=== PATIENT | female | born 1995 | race Caucasian/White ===

== ENCOUNTER 2017-04-01 10:21 | Emergency (ER) | payer MEDICAID ==
[2017-04-01] MEDS ORDERED: ACETAMINOPHEN 325 MG TAB PO ONE (10:51)
--- NOTE | 2017-04-01 10:54 | Emergency Department Record ---
History of Present Illness - General Chief Complaint: Ankle/Foot Injury Stated Complaint: R ANKLE INJURY Time Seen by Provider: 04/01/17 10:48 Source: Patient Mode of Arrival: Wheelchair - History of Present Illness Initial Comments: the patient states that she rolled her ankle last evening while walking in the yard in the dark. She fell to the grass, felt some popping at the time. She enies other injury or prior injury to that ankle. Onset/Timin -: Days(s) Type of Injury: Inversion Place: Home Severity: Moderate Severity scale (1-10): 7 Improves With: Immobilization Worsens With: Weight bearing Context: Walking - Related Data Home Medications Medication Instructions Recorded Confirmed Last Taken No Home Med [NO HOME MEDS] 04/01/17 04/01/17 Unknown Allergies Allergy/AdvReac Type Severity Reaction Status Date / Time No Known Drug Allergies Allergy Verified 04/01/17 10:30 Travel Screening - Travel/Exposure Within Last 30 Days Have you traveled within the last 30 days?: No Review of Systems Reviewed: No additional complaints except as noted below Constitutional: Reports: As per HPI. Denies: Chills, Fever, Malaise, Night sweats, Weakness, Weight change Eyes: Reports: As per HPI. Denies: Eye discharge, Eye pain, Photophobia, Vision change ENT: Reports: As per HPI. Denies: Congestion, Dental pain, Ear pain, Epistaxis , Hearing loss, Throat pain Respiratory: Reports: As per HPI. Denies: Cough, Dyspnea, Hemoptysis, Stridor, Wheezes Cardiovascular: Reports: As per HPI. Denies: Arrhythmia, Chest pain, Dyspnea on exertion, Edema, Murmurs, Orthopnea, Palpitations, Paroxysmal nocturnal dyspnea, Rheumatic Fever, Syncope Endocrine: Reports: As per HPI. Denies: Fatigue, Heat or cold intolerance, Polydipsia, Polyuria Gastrointestinal: Reports: As per HPI. Denies: Abdominal pain, Constipation, Diarrhea, Hematemesis, Hematochezia, Melena, Nausea, Vomiting Genitourinary: Reports: As per HPI. Denies: Abnormal menses, Discharge, Dyspareunia, Dysuria, Frequency, Hematuria, Incontinence, Retention, Urgency Musculoskeletal: Reports: As per HPI. Denies: Arthralgia, Back pain, Gout, Joint swelling, Myalgia, Neck pain Skin: Reports: As per HPI. Denies: Bruising, Change in color, Change in hair/ nails, Lesions, Pruritus, Rash Neurological: Reports: As per HPI. Denies: Abnormal gait, Confusion, Headache, Numbness, Paresthesias, Seizure, Tingling, Tremors, Vertigo, Weakness Psychiatric: Reports: As per HPI. Denies: Anxiety, Auditory hallucinations, Depression, Homicidal thoughts, Suicidal thoughts, Visual hallucinations Hematological/Lymphatic: Reports: As per HPI. Denies: Anemia, Blood Clots, Easy bleeding, Easy bruising, Swollen glands Past Medical History - SOCIAL HISTORY Smoking Status: Never smoker Alcohol Use: None Drug Use: None - RESPIRATORY Hx Respiratory Disorders: No - CARDIOVASCULAR Hx Cardio Disorders: No - NEURO Hx Neuro Disorders: No - GI Hx GI Disorders: No - Hx Genitourinary Disorders: No - ENDOCRINE Hx Endocrine Disorders: No Hx Diabetes: No Hx Thyroid Disease: No - MUSCULOSKELETAL Hx Musculoskeletal Disorders: No - PSYCH Hx Psych Problems: No - HEMATOLOGY/ONCOLOGY Hx Hematology/Oncology Disorders: No Family Medical History Any Significant Family History?: Yes Hx Cancer: Mother Hx Diabetes: Grandparents Physical Exam - General General Appearance: Alert, Oriented x3, Cooperative, Mild distress - Head Head exam: Normal inspection - Eye Eye exam: Normal appearance, PERRL Pupils: Normal accommodation - ENT ENT exam: Normal exam, Mucous membranes moist, Normal external ear exam, Normal orophraynx Ear exam: Normal external inspection. negative: External canal tenderness Nasal Exam: Normal inspection. negative: Discharge, Sinus tenderness Mouth exam: Normal external inspection, Tongue normal Teeth exam: Normal inspection. negative: Dental caries Throat exam: Normal inspection. negative: Tonsillar erythema, Tonsillar exudate - Neck Neck exam: Normal inspection, Full ROM. negative: Tenderness - Respiratory Respiratory exam: negative: Respiratory distress - Cardiovascular Cardiovascular Exam: Regular rate, Normal rhythm - GI/Abdominal GI/Abdominal exam: Soft. negative: Tenderness - Rectal Rectal exam: Deferred - exam: Deferred - Extremities Extremities exam: Full ROM, Normal capillary refill, Tenderness (Right ankle tender mostly over lateral malleolus with moderate swelling there. No foot bony tenderness. No proximal fibula tenderness. [employer]PER intact distally.) - Back Back exam: Reports: Normal inspection, Full ROM. Denies: Muscle spasm, Rash noted, Tenderness - Neurological Neurological exam: Alert, Normal gait, Oriented X3, Reflexes normal - Psychiatric Psychiatric exam: Normal affect, Normal mood - Skin Skin exam: Dry, Intact, Normal color, Warm Course Vital Signs 04/01/17 10:27 Temperature 98.0 F Pulse Rate 83 Respiratory 20 Rate Blood Pressure 120/68 Pulse Ox 100 Medical Decision Making - Data Complexity MDM Data: X-Ray Ordered and/or Reviewed (Right ankle xray: Negative for acute fx ; STS. Per ED physician& radiologist.) Disposition Disposition: Discharge Clinical Impression: Right ankle sprain Qualifiers: Encounter type: initial encounter Involved ligament of ankle: unspecified ligament Qualified Code(s): S93.401A - Sprain of unspecified ligament of right ankle, initial encounter Disposition: Home, Self-Care Condition: (1) Good Instructions: Ankle Sprain Exercises (GEN), Ankle Sprain (ED) Additional Instructions: Airsplint right ankle. Ice, elevate first 48 hours. Tylenol or ibuprofen as directed as needed for pain. Crutches with NO weight bearing. Follow up with PCP next week for recheck.
--- NOTE | 2017-04-04 12:10 | RADIOLOGY REPORT ---
EXAM: RIGHT ANKLE, FOUR VIEWS HISTORY: RIGHT ANKLE INJURY, LATERAL PAIN. TECHNIQUE: Four views of the right ankle were obtained. Comparison: None. Encounter: Initial. FINDINGS: Lateral soft tissue swelling of the right ankle. The ankle mortise is intact. No fracture. IMPRESSION: NO ACUTE OSSEOUS ABNORMALITY OF THE RIGHT ANKLE. JOB NUMBER: [id number] MTDD
== END 2017-04-01 12:01 | disposition home or self-care (01) ==
LOC: ER 10:21
DX: S93.401A Sprain of unspecified ligament of right ankle, initial encounter (principal); W18.42XA Slipping, tripping and stumbling without falling due to stepping into hole or opening, initial encounter; Y93.01 Activity, walking, marching and hiking; Y92.017 Garden or yard in single-family (private) house as the place of occurrence of the external cause
CPT/HCPCS: 99283

== ENCOUNTER 2017-05-21 10:54 | Emergency (ER) | payer MEDICAID ==
--- NOTE | 2017-05-21 11:27 | Emergency Department Record ---
History of Present Illness - General Chief complaint: Female Urogenital Problem Stated complaint: VAGINAL DISCHARGE Time Seen by Provider: 05/21/17 11:02 Source: Patient, RN notes reviewed Mode of Arrival: Ambulatory - History of Present Illness Initial comments: seen at [facility] 4 days ago and was diagnoses with bacterial vaginosis and placed on clindamycin and she has four pills left and the bacterial discharge is worse and she is 8 weeks preg. No abdominal pain and she has a 2 year old child. Patient thinks she is 8 weeks preg MD Complaint: Vaginal discharge Onset/Timin -: Days(s) Severity: Moderate Severity scale (1-10): 5 Quality: Other Consistency: Constant Improves with: None Worsens with: None Patient : Yes (8 weeks) Associated Symptoms: Vaginal discharge - Related Data Home Medications Medication Instructions Recorded Confirmed Last Taken Pnv,Calcium 72/Iron/Folic Acid 1 tab PO DAILY 30 Days 05/16/17 05/21/17 05/21/17 [Pnv Plus Multivit Tab] Previous Rx's Medication Instructions Recorded Miconazole Nitrate [Monistat 7] 1 apply VG DAILY #7 applic 05/21/17 Allergies Allergy/AdvReac Type Severity Reaction Status Date / Time No Known Drug Allergies Allergy Verified 05/21/17 11:08 Travel Screening - Travel/Exposure Within Last 30 Days Have you traveled within the last 30 days?: No - Travel/Exposure Within Last Year Have you traveled outside the [place] in the last year?: No - Additonal Travel Details Have you been exposed to anyone with a communicable illness?: No - Travel Symptoms Symptom Screening: None Review of Systems Reviewed: No additional complaints except as noted below Constitutional: Reports: As per HPI. Denies: Chills, Fever, Malaise, Night sweats, Weakness, Weight change Eyes: Reports: As per HPI. Denies: Eye discharge, Eye pain, Photophobia, Vision change ENT: Reports: As per HPI. Denies: Congestion, Dental pain, Ear pain, Epistaxis , Hearing loss, Throat pain Respiratory: Reports: As per HPI. Denies: Cough, Dyspnea, Hemoptysis, Stridor, Wheezes Cardiovascular: Reports: As per HPI. Denies: Arrhythmia, Chest pain, Dyspnea on exertion, Edema, Murmurs, Orthopnea, Palpitations, Paroxysmal nocturnal dyspnea, Rheumatic Fever, Syncope Endocrine: Reports: As per HPI. Denies: Fatigue, Heat or cold intolerance, Polydipsia, Polyuria Gastrointestinal: Reports: As per HPI. Denies: Abdominal pain, Constipation, Diarrhea, Hematemesis, Hematochezia, Melena, Nausea, Vomiting Genitourinary: Reports: As per HPI. Denies: Abnormal menses, Discharge, Dyspareunia, Dysuria, Frequency, Hematuria, Incontinence, Retention, Urgency Musculoskeletal: Reports: As per HPI. Denies: Arthralgia, Back pain, Gout, Joint swelling, Myalgia, Neck pain Skin: Reports: As per HPI. Denies: Bruising, Change in color, Change in hair/ nails, Lesions, Pruritus, Rash Neurological: Reports: As per HPI. Denies: Abnormal gait, Confusion, Headache, Numbness, Paresthesias, Seizure, Tingling, Tremors, Vertigo, Weakness Psychiatric: Reports: As per HPI. Denies: Anxiety, Auditory hallucinations, Depression, Homicidal thoughts, Suicidal thoughts, Visual hallucinations Hematological/Lymphatic: Reports: As per HPI. Denies: Anemia, Blood Clots, Easy bleeding, Easy bruising, Swollen glands Past Medical History - SOCIAL HISTORY Smoking Status: Never smoker Alcohol Use: None Drug Use: None - RESPIRATORY Hx Respiratory Disorders: No - CARDIOVASCULAR Hx Cardio Disorders: No - NEURO Hx Neuro Disorders: No - GI Hx GI Disorders: No - Hx Genitourinary Disorders: No - ENDOCRINE Hx Endocrine Disorders: No Hx Diabetes: No Hx Thyroid Disease: No - MUSCULOSKELETAL Hx Musculoskeletal Disorders: No - PSYCH Hx Psych Problems: No - HEMATOLOGY/ONCOLOGY Hx Hematology/Oncology Disorders: No Family Medical History Any Significant Family History?: Yes Hx Cancer: Mother Hx Diabetes: Grandparents Physical Exam - General General Appearance: Alert, Oriented x3, Cooperative, No acute distress - Head Head exam: Normal inspection - Eye Eye exam: Normal appearance, PERRL Pupils: Normal accommodation - ENT ENT exam: Normal exam, Mucous membranes moist, Normal external ear exam, Normal orophraynx, TM's normal bilaterally Ear exam: Normal external inspection. negative: External canal tenderness Nasal Exam: Normal inspection. negative: Discharge, Sinus tenderness Mouth exam: Normal external inspection, Tongue normal Teeth exam: Normal inspection. negative: Dental caries Throat exam: Normal inspection. negative: Tonsillar erythema, Tonsillar exudate - Neck Neck exam: Normal inspection, Full ROM. negative: Tenderness - Respiratory Respiratory exam: Normal lung sounds bilaterally. negative: Respiratory distress - Cardiovascular Cardiovascular Exam: Regular rate, Normal rhythm, Normal heart sounds - GI/Abdominal GI/Abdominal exam: Soft, Normal bowel sounds. negative: Tenderness - Rectal Rectal exam: Deferred - exam: Vaginal discharge (discharge is cottage cheese like discharge) - Extremities Extremities exam: Normal inspection, Full ROM, Normal capillary refill. negative: Tenderness - Back Back exam: Reports: Normal inspection, Full ROM. Denies: Muscle spasm, Rash noted, Tenderness - Neurological Neurological exam: Alert, Normal gait, Oriented X3, Reflexes normal - Psychiatric Psychiatric exam: Normal affect, Normal mood - Skin Skin exam: Dry, Intact, Normal color, Warm Course Vital Signs 05/21/17 05/21/17 11:04 11:10 Temperature 98.9 F 98.9 F Pulse Rate [ 84 Pulse Ox Probe] Respiratory 16 16 Rate Blood Pressure 114/70 [Left Arm] Pulse Ox 97 97 Disposition Clinical Impression: Monial infection of vagina Qualifiers: Weeks of gestation: 8 weeks Qualified Code(s): Z3A.08 - 8 weeks gestation of Disposition: Home, Self-Care Condition: (1) Good Instructions: Vulvovaginal Candidiasis (ED) Additional Instructions: follow up with family dr Costello 3 days Prescriptions: Miconazole Nitrate [Monistat 7] 1 apply VG DAILY #7 applic Forms: Patient Portal Access Time of Disposition: 12:00 Quality - Quality Measures Quality Measures: N/A - Blood Pressure Screening Blood Pressure Classification: Normal BP Reading Systolic Measurement: 114 Diastolic Measurement: 70 Screening for High Blood Pressure: < Normal BP, F/U Not Required > [G8783] Normal BP Follow-up Interventions: No follow-up required
[2017-05-21 11:29] LABS: URINE APPEARANCE CLEAR; URINE BILIRUBIN NEGATIVE (NEGATIVE); URINE BLOOD TRACE-I (NEGATIVE); URINE COLOR YELLOW; URINE GLUCOSE (UA) NEGATIVE (NEGATIVE); URINE KETONE NEGATIVE (NEGATIVE); URINE LEUKOCYTE ESTERASE LARGE (NEGATIVE); URINE NITRITE NEGATIVE (NEGATIVE); URINE PROTEIN NEGATIVE (NEGATIVE); URINE UROBILINOGEN 0.2 E.U./dL (0.20 - 1.00)
[2017-05-21 11:31] LABS: HCG,QUALITATIVE URINE POSITIVE (NEGATIVE)
[2017-05-21 11:44] LABS: URINE RBC 0 - 2 (NONE SEEN); URINE WBC 21 - 35 (0-2/hpf)
[2017-05-21 11:45] LABS: URINE BACTERIA FEW
[2017-05-21 11:46] LABS: URINE YEAST FEW
== END 2017-05-21 12:00 | disposition home or self-care (01) ==
LOC: ER 10:54
DX: O98.811 Other maternal infectious and parasitic diseases complicating pregnancy, first trimester (principal); B37.3 Candidiasis of vulva and vagina; Z3A.08 8 weeks gestation of pregnancy
CPT/HCPCS: 81001; 81025; 99284

== ENCOUNTER 2017-07-24 10:00 | Emergency (ER) | payer MEDICAID ==
--- NOTE | 2017-07-24 10:12 | Emergency Department Record ---
History of Present Illness - General Chief complaint: complication Stated complaint: 20 WKS PREG/BLEEDING & CRAMPING Time Seen by Provider: 07/24/17 10:05 Source: Patient Mode of Arrival: Ambulatory Limitations: No limitations - History of Present Illness Initial comments: 21 yo female at 20 weeks gestation on her second presents with spotting that started last night around 5pmRJ and now has cramping. Her first was a full term , vaginal delivery without complications. She denies and complications with this . She is followed through the [facility]. She states she is Rh negative. MD Complaint: Vaginal bleeding -: Days(s) (1) Radiation: Suprapubic Severity: Moderate Quality: Aching, Cramping Consistency: Constant Improves with: None Worsens with: None Associated symptoms: Vaginal bleeding Vaginal bleeding: Light No complications No complications - Related Data Allergies Allergy/AdvReac Type Severity Reaction Status Date / Time No Known Drug Allergies Allergy Verified 05/21/17 11:08 Review of Systems Constitutional: Denies: Chills, Fever, Weakness Eyes: Denies: Eye discharge ENT: Denies: Congestion, Throat pain Respiratory: Denies: Cough Cardiovascular: Denies: Chest pain, Palpitations, Syncope Endocrine: Denies: Fatigue Gastrointestinal: Reports: As per HPI, Abdominal pain. Denies: Diarrhea, Nausea , Vomiting Genitourinary: Reports: As per HPI, Abnormal menses. Denies: Dysuria, Hematuria , Retention, Urgency Musculoskeletal: Denies: Arthralgia, Back pain, Myalgia, Neck pain Skin: Denies: Bruising, Change in color, Rash Neurological: Denies: Headache, Numbness, Vertigo, Weakness Psychiatric: Denies: Anxiety Hematological/Lymphatic: Denies: Blood Clots, Easy bleeding, Easy bruising, Swollen glands Past Medical History - SOCIAL HISTORY Smoking Status: Never smoker Drug Use: None - RESPIRATORY Hx Respiratory Disorders: No - CARDIOVASCULAR Hx Cardio Disorders: No - NEURO Hx Neuro Disorders: No - GI Hx GI Disorders: No - Hx Genitourinary Disorders: No - ENDOCRINE Hx Endocrine Disorders: No Hx Diabetes: No Hx Thyroid Disease: No - MUSCULOSKELETAL Hx Musculoskeletal Disorders: No - PSYCH Hx Psych Problems: No - HEMATOLOGY/ONCOLOGY Hx Hematology/Oncology Disorders: No Family Medical History Hx Cancer: Mother Hx Diabetes: Grandparents Physical Exam - General General Appearance: Alert, Oriented x3, Cooperative, No acute distress Limitations: No limitations - Head Head exam: Atraumatic, Normocephalic, Normal inspection - Eye Eye exam: Normal appearance. negative: Conjunctival injection, Periorbital swelling - ENT ENT exam: Normal exam, Mucous membranes moist Ear exam: Normal external inspection Nasal Exam: Normal inspection Mouth exam: Normal external inspection - Neck Neck exam: Normal inspection - Respiratory Respiratory exam: Normal lung sounds bilaterally. negative: Respiratory distress - Cardiovascular Cardiovascular Exam: Regular rate, Normal rhythm, Normal heart sounds Peripheral Pulses: 2+: Radial (R), Radial (L) - GI/Abdominal GI/Abdominal exam: Soft - Rectal Rectal exam: Deferred - exam: Normal external exam, Normal speculum exam, Vaginal discharge (very minimal thin white), Other (no blood in the vault or on the swabs). negative: Abnormal external exam, Adnexal mass (L), Adnexal mass (R), Adnexal tenderness ( L), Adnexal tenderness (R), Cervical discharge, cervical motion tenderness, Vaginal bleeding, Vaginal erythema - Extremities Extremities exam: Normal inspection, Full ROM, Normal capillary refill. negative: Tenderness - Back Back exam: Reports: Normal inspection, Full ROM. Denies: Muscle spasm, Rash noted, Tenderness - Neurological Neurological exam: Alert, Normal gait, Oriented X3 - Psychiatric Psychiatric exam: Normal affect, Normal mood. negative: Agitated, Anxious - Skin Skin exam: Dry, Intact, Normal color, Warm. negative: Cyanosis, Diaphoretic, Erythema, Mottled Course - Reevaluation(s) Reevaluation #1: Bedside US was completed A single baby was easily identified The baby had frequent very good movement. The HR was approximately 150 and regular. 07/24/17 10:20 EMR reviewed hgb on 06/05/17 9.0 with low MCV 71 Rh on 06/05/17 was NEGATIVE 07/24/17 10:27 Reevaluation #2: Hgb is 9.0 07/24/17 10:39 I called [facility] to discuss the patient's presentation to the ED. Per [facility] Dr Longo is insurance operations rep. The patient is currently comfortable without pain. No bleeding at this time 07/24/17 10:[address] Longo of OB She agreed with Rhogam now She recommended wet prep and TV US and then call back with results I discussed this with the patient. She is in agreement. 07/24/17 10:51 The pelvic exam was completed gently No blood in the vaginal vault. No clots. Minimal thin white discharge No blood on the swabs. NO sign of current or past bleeding. 07/24/17 11:04 07/24/17 12:07 Wet prep is negative 07/24/17 13:00 The US is negative, posterior placenta, no previa, 3 vessel cord, normal fetus with good HR. Trans vaginal Cervical Length was 6.[address] Longo the length needs to be greater that 2.5cm with today's being 6.18 cm The patient and I discussed at length the findings. The patient is ready for DC. We discussed at length follow up importance and reasons to be evaluated again if any symptoms persist or increase 07/24/17 13:08 Medical Decision Making - Lab Data Result diagrams: 07/24/17 10:20 07/24/17 10:20 Disposition Disposition: Discharge Clinical Impression: Threatened miscarriage Disposition: Home, Self-Care Condition: (1) Good Instructions: Threatened Miscarriage (ED) Additional Instructions: Follow up as scheduled with your OB on Monday Go to [facility] or Labor and delivery if you have any increase in pain or bleeding Avoid intercourse until cleared by your doctor Rest and stay well hydrated Forms: Patient Portal Access Time of Disposition: 13:19 Quality - Quality Measures Quality Measures: N/A - Blood Pressure Screening Does Patient Have Any of the Following: No Blood Pressure Classification: Normal BP Reading Systolic Measurement: 116 Diastolic Measurement: 66 Screening for High Blood Pressure: < Normal BP, F/U Not Required > [G8783]
[2017-07-24 10:30] LABS: BASO % 0.3 % (0-6); EOS % 3.6 % (0-6); HEMATOCRIT 28.8 % (35.0-47.0); MEAN CELL VOLUME 75.2 fl (81-97); MEAN CORPUSCULAR HGB CONC 31.3 g/dl (32-36); MEAN PLATELET VOLUME 10.5 fl (7.4-10.4); MONO % 5.1 % (0-9); PLATELET COUNT 358 K/uL (130-400); RED BLOOD COUNT 3.83 M/uL (3.80-5.40); RED CELL DISTRIBUTION WIDTH 18.7 % (11.5-14.5)
[2017-07-24 10:31] LABS: MEAN CORPUSCULAR HEMOGLOBIN 23.4 pg (27-33)
[2017-07-24 10:46] LABS: ALB/GLOB RATIO 1.3 (1.1-1.8); ALBUMIN 3.6 g/dL (4.0-5.0); ALKALINE PHOSPHATASE 45 U/L (35-104); ALT/SGPT 8 U/L (<33); AST/SGOT 13 U/L (10.0-35.0); BLOOD UREA NITROGEN 4 mg/dL (6-20); CREATININE 0.4 mg/dL (0.5-0.9); EST GLOMERULAR FILTRATION RATE > 60 mL/min; GLUCOSE,RANDOM 89 mg/dL (74-109); TOTAL PROTEIN 6.3 g/dL (6.6-8.7)
[2017-07-24] MEDS: 0.9 % SODIUM CHLORIDE 1,000 ML BAG IV ONE (10:57)
[2017-07-24] MEDS: RHO(D) IMMUNE GLOBULIN 1,500 UNIT DISP.SYRIN IM ONE (10:57)
[2017-07-24 12:43] LABS: URINE APPEARANCE CLEAR; URINE BILIRUBIN NEGATIVE (NEGATIVE); URINE BLOOD SMALL (NEGATIVE); URINE COLOR YELLOW; URINE GLUCOSE (UA) NEGATIVE (NEGATIVE); URINE KETONE 15 mg/dL (NEGATIVE); URINE LEUKOCYTE ESTERASE NEGATIVE (NEGATIVE); URINE NITRITE NEGATIVE (NEGATIVE); URINE PROTEIN NEGATIVE (NEGATIVE); URINE UROBILINOGEN 0.2 E.U./dL (0.20 - 1.00)
[2017-07-24 12:51] LABS: URINE BACTERIA FEW; URINE SQUAMOUS EPITHELIAL CELL 0 - 2 /hpf; URINE WBC 0 - 2 (0-2/hpf)
--- NOTE | 2017-07-25 11:11 | ULTRASOUND REPORT ---
EXAM: EMERGENCY SECOND TRIME[facility] OB ULTRASOUND HISTORY: 20 WEEKS , BLEEDING AND CRAMPING STARTING YESTERDAY. TECHNIQUE: Real-time ultrasound examination of the pelvis was performed utilizing transabdominal and transvaginal technique. Comparison: No prior ultrasound from this with which to compare. FINDINGS: A single viable intrauterine fetus is seen in the vertex presentation. The placenta appears to be posterior somewhat towards the left. No definite previa is seen. The amount of amniotic fluid appears to be within normal limits. dating parameters were as follows: BPD = 4.64 cm = 20 weeks 0 day HC = 17.32 cm = 19 weeks 6 days AC = 14.96 cm = 19 weeks 6 days FL = 3.29 cm = 19 weeks 6 days Composite estimated gestational age today is therefore 19 weeks 6 days and this gives an estimated date of delivery of 12/12/17. The cephalic index of 73.98, HC /AC ratio of 1.16, and FL/HC ratio is 18.97 are all in the normal ranges indicated by the computer printout. heartbeat detected at 147 b.p.m. consistent with a viable intrauterine . On the anatomic survey, the bladder, stomach, spine, kidneys, four chamber heart, head, and extremities were all evaluated with no definite anomalies identified. A three vessel cord is visualized. The cervix measured at about 6.2 cm. On the transvaginal images of the cervix, there is questionably very slight flaring of the internal os with no actual endocervical fluid evident. IMPRESSION: 1. A SINGLE VIABLE FETUS IN A PREDOMINANTLY VERTEX PRESENTATION. BOTH CARDIAC WELL GENERALIZED ACTIVITY EVIDENT DURING THE COURSE OF THE REAL- TIME EXAMINATION. 2. ESTIMATED GESTATIONAL AGE OF 19 WEEKS 6 DAYS WITH AN ESTIMATED DATE OF DELIVERY OF 12/12/17. 3. POSTERIOR PLACENTA TOWARDS THE LEFT. NO PREVIA EVIDENT. QUESTIONABLE SLIGHT FLARING OF THE INTERNAL OS. JOB NUMBER: [id number] [facility]
[2017-07-25 21:03] LABS: GC SPECIMEN TYPE Vaginal
== END 2017-07-24 13:33 | disposition home or self-care (01) ==
LOC: ER 10:00
DX: O20.0 Threatened abortion (principal); Z3A.19 19 weeks gestation of pregnancy
CPT/HCPCS: 99284 ×2; 96372; 85025; 80053; 81001; 86901; 76805; Q0111; J2790; 87210; J7030

== ENCOUNTER 2018-07-04 17:25 | Emergency (ER) | payer MEDICAID ==
--- NOTE | 2018-07-04 17:46 | Emergency Department Record ---
History of Present Illness - General Chief complaint: Female Urogenital Problem Stated complaint: URINARY PAIN, & FREQUENCY, Time Seen by Provider: 07/04/18 17:35 Source: Patient Mode of Arrival: Ambulatory Limitations: No limitations - History of Present Illness Initial comments: The patient is here due to mild dysuria today. She thinks she has a UTI. There is no reported AP, nausea, vomiting, back pain or fever. MD Complaint: Dysuria Onset/Timin -: Hour(s) LMP Date: 06/13/18 Gestational Age (wks) based on LMP: 3 Associated Symptoms: Denies other symptoms - Related Data Home Medications Medication Instructions Recorded Confirmed Last Taken Bupropion HCl [Wellbutrin Xl] 150 mg PO DAILY 07/04/18 07/04/18 07/04/18 Norethindrone [Sharobel] 0.35 mg PO DAILY 07/04/18 07/04/18 07/04/18 Previous Rx's Medication Instructions Recorded Nitrofurantoin [place] [Macrobid] 100 mg PO BID #14 capsule 07/04/18 Phenazopyridine HCl [Pyridium] 100 mg PO TID #6 tablet 07/04/18 Allergies Allergy/AdvReac Type Severity Reaction Status Date / Time No Known Drug Allergies Allergy Verified 07/04/18 17:42 Travel Screening - Travel/Exposure Within Last 30 Days Have you traveled within the last 30 days?: No - Travel/Exposure Within Last Year Have you traveled outside the [place] in the last year?: No - Additonal Travel Details Have you been exposed to anyone with a communicable illness?: No - Travel Symptoms Symptom Screening: None Review of Systems Constitutional: Denies: Chills, Fever Eyes: Denies: Eye discharge ENT: Denies: Congestion Respiratory: Denies: Cough, Dyspnea Past Medical History - SOCIAL HISTORY Smoking Status: Never smoker Alcohol Use: Rare Drug Use: None - RESPIRATORY Hx Respiratory Disorders: No - CARDIOVASCULAR Hx Cardio Disorders: No - NEURO Hx Neuro Disorders: No - GI Hx GI Disorders: No - Hx Genitourinary Disorders: Yes Hx UTI: Yes - ENDOCRINE Hx Endocrine Disorders: No Hx Diabetes: No Hx Thyroid Disease: No - MUSCULOSKELETAL Hx Musculoskeletal Disorders: No - PSYCH Hx Psych Problems: Yes Hx Depression: Yes - HEMATOLOGY/ONCOLOGY Hx Hematology/Oncology Disorders: No Family Medical History Any Significant Family History?: No Hx Cancer: Mother Hx Diabetes: Grandparents Physical Exam - General General Appearance: Alert, Oriented x3, Cooperative, No acute distress - Head Head exam: Atraumatic, Normocephalic, Normal inspection - Eye Eye exam: Normal appearance, PERRL - Neck Neck exam: Normal inspection, Full ROM. negative: Tenderness - Respiratory Respiratory exam: Normal lung sounds bilaterally. negative: Respiratory distress - Cardiovascular Cardiovascular Exam: Regular rate, Normal rhythm, Normal heart sounds - GI/Abdominal GI/Abdominal exam: Soft, Normal bowel sounds. negative: Tenderness - Extremities Extremities exam: Normal inspection, Full ROM, Normal capillary refill. negative: Tenderness - Back Back exam: Denies: CVA tenderness (R), CVA tenderness (L) - Neurological Neurological exam: Alert Course Vital Signs 07/04/18 17:35 Temperature 98.9 F Pulse Rate 88 Respiratory 16 Rate Blood Pressure 128/70 Pulse Ox 98 - Reevaluation(s) Reevaluation #1: I did discuss the UTI with the patient and the need for F/U if not better. 07/04/18 17:55 Medical Decision Making - Data Complexity MDM Data: Labs Ordered and/or Reviewed Disposition Disposition: Discharge Clinical Impression: Cystitis Disposition: Home, Self-Care Condition: (2) Stable Instructions: Urinary Tract Infection in Women (ED) Additional Instructions: Please drink plenty of fluids and take the Macrobid and pyridium as directed. Please see your family doctor if not better by Monday. Return to the ER for any worsening symptoms or any fever, vomiting, or back pain. Prescriptions: Nitrofurantoin [place] [Macrobid] 100 mg PO BID #14 capsule Phenazopyridine HCl [Pyridium] 100 mg PO TID #6 tablet Forms: Patient Portal Access Time of Disposition: 17:56 Quality - Quality Measures Quality Measures: N/A - Blood Pressure Screening View Details: Yes Does Patient Have Any of the Following: No Blood Pressure Classification: Pre-Hypertensive BP Reading Systolic Measurement: 128 Diastolic Measurement: 70 Screening for High Blood Pressure: < Pre-Hypertensive BP, F/U Documented > [ [id number]] Pre-Hypertensive Follow-up Interventions: Referral to alternative/primary care provider.
[2018-07-04 17:48] LABS: URINE APPEARANCE CLOUDY; URINE BILIRUBIN NEGATIVE (NEGATIVE); URINE BLOOD SMALL (NEGATIVE); URINE COLOR YELLOW; URINE GLUCOSE (UA) NEGATIVE (NEGATIVE); URINE KETONE NEGATIVE (NEGATIVE); URINE LEUKOCYTE ESTERASE MODERATE (NEGATIVE); URINE NITRITE NEGATIVE (NEGATIVE); URINE PROTEIN TRACE (NEGATIVE); URINE UROBILINOGEN 0.2 E.U./dL (0.20 - 1.00)
[2018-07-04 18:00] LABS: URINE BACTERIA 1+; URINE WBC >50 (0-2/hpf)
== END 2018-07-04 18:09 | disposition home or self-care (01) ==
LOC: ER 17:25
DX: N30.01 Acute cystitis with hematuria (principal)
CPT/HCPCS: 81001; 81025; 99282